=== PATIENT | male | born 1995 | race Asian ===

== ENCOUNTER 2020-03-15 19:31 | Emergency (ER) | payer OTHER ==
[~2020-03-15] VITALS: Ht 170.2 cm; Wt 79.4 kg
[2020-03-15 19:35] VITALS: BP 135/94
--- NOTE | 2020-03-15 19:50 | NUR ---
patient's swab sample is collected and sent to the lab.
--- NOTE | 2020-03-15 20:03 | NUR ---
Patient discharged to home in stable condition. Written and verbal after care instructions given. Patient verbalizes understanding of instruction.
== END 2020-03-15 20:07 | disposition home or self-care (01) ==
LOC: ER 19:41
DX: R51.9 Headache, unspecified (principal); M79.10 Myalgia, unspecified site; Z20.828 Contact with and (suspected) exposure to other viral communicable diseases
CPT/HCPCS: 87426; 99283; C9803; U0003

== ENCOUNTER 2020-07-05 10:10 | Emergency (ER) | payer BC, OTHER ==
[~2020-07-05] VITALS: Ht 167.6 cm; Wt 81.6 kg
--- NOTE | 2020-07-05 10:17 | NUR ---
PT AMBULATORY TO ER BED 04 C/O FEELING WEEK, ABDOMINAL CRAMPING W/ N/V/D THAT STARTED AT AROUND 2AM. PLACED ON MONITOR. [place] [place].
--- NOTE | 2020-07-05 10:18 | NUR ---
DR OLSON AT BEDSIDE FOR EVAL
--- NOTE | 2020-07-05 10:28 | NUR ---
IV LINE STARTED BLOOD DRAWN AND SENT TO LAB.
[2020-07-05] MEDS ORDERED: ONDANSETRON HCL/PF 4 MG/2 ML VIAL ONE (10:29)
[2020-07-05] MEDS: IV NS 0.9% 1,000 ML BAG IV ONE ×2 (10:30→10:49)
[2020-07-05] MEDS: ONDANSETRON HCL/PF 4 MG/2 ML VIAL IVP ONE (10:31)
[2020-07-05 10:40] LABS: BASOPHILS # (AUTO) 0.1 /CMM (0.0-0.2); BASOPHILS % (AUTO) 0.5 % (0.0-2.0); CALCIUM, SERUM 9.1 mg/dL (8.5-10.1); CARBON DIOXIDE 32 mmol/L (21-32); CHLORIDE 103 mmol/L (98-107); CREATININE 1.1 mg/dL (0.6-1.3); EOSINOPHILS % (AUTO) 0.1 % (0.0-6.0); GLUCOSE 122 mg/dL (74-106); HEMATOCRIT 55 % (39-51); LYMPHOCYTES # (AUTO) 0.2 /CMM (0.8-4.8); LYMPHOCYTES % (AUTO) 1.2 % (20.0-44.0); MEAN CORPUSCULAR HGB CONC 35 g/dl (31.0-36.0); MEAN CORPUSCULAR VOLUME 98 fL (80-96); MONOCYTES # (AUTO) 0.4 /CMM (0.1-1.30); MONOCYTES % (AUTO) 2.6 % (2.0-12.0); NEUTROPHILS # (AUTO) 13.1 /CMM (1.8-8.9); NEUTROPHILS % (AUTO) 95.6 % (43.0-81.0); PLATELET COUNT (AUTO) 238 /CMM (150-450); POTASSIUM 4.1 mmol/L (3.5-5.1); RED BLOOD CELL COUNT(AUTO) 5.62 MIL/uL (4.5-6.0); SODIUM SERUM 142 mmol/L (136-145); UREA NITROGEN, BLOOD 19 mg/dL (7-18); WHITE BLOOD COUNT (AUTO) 13.7 K/uL (4.3-11.0)
[2020-07-05 10:41] LABS: HEMOGLOBIN 19.1 g/dL (13.5-17.5)
[2020-07-05 10:45] LABS: ALBUMIN 4.4 g/dL (3.4-5.0); ALKALINE PHOSPHATASE 58 U/L (46-116); ASPARTATE AMINOTRANSFERASE 22 U/L (15-37); BILIRUBIN,DIRECT 0.4 mg/dL (0.0-0.2); BILIRUBIN,TOTAL 1.9 mg/dL (0.2-1.0); LIPASE 85 U/L (73-393)
[2020-07-05 10:49] LABS: ALANINE AMINOTRANSFERASE 28 U/L (12-78)
[2020-07-05 12:39] LABS: LYMPHOCYTES % (MANUAL) 2 % (16-48); MONOCYTES % (MANUAL) 5 % (0-11.0); NEUTROPHILS % (MANUAL) 93 (42-76)
[2020-07-05] MEDS ORDERED: ONDA4TAB11 PO (13:16)
--- NOTE | 2020-07-05 13:21 | NUR ---
Patient discharged to home in stable condition. Written and verbal after care instructions given. Patient verbalizes understanding of instruction.IV removed. Catheter intact and site benign. Pressure and 4x4 applied to site. No bleeding noted.
[2020-07-05 13:22] VITALS: BP 135/76
== END 2020-07-05 13:22 | disposition home or self-care (01) ==
LOC: ER 10:15
DX: K52.9 Noninfective gastroenteritis and colitis, unspecified (principal); E86.0 Dehydration; R94.31 Abnormal electrocardiogram [ECG] [EKG]; R00.0 Tachycardia, unspecified; R42 Dizziness and giddiness; Z88.6 Allergy status to analgesic agent; Z60.2 Problems related to living alone; Z79.899 Other long term (current) drug therapy
CPT/HCPCS: 80048; 80076; 83690; 84484; 85007; 85025; 93005; 96361; 96374; 99284; J2405; J7030; 36415